=== PATIENT | male | born 1985 | race Caucasian/White ===

== ENCOUNTER 2017-07-18 15:05 | Inpatient (IN) | payer MEDICAID, OTHER ==
[~2017-07-18] VITALS: Ht 162.6 cm; Wt 68.0 kg
[2017-07-18 18:02] LABS: BASOPHILS % 0.4 % (0.0-2.0); EOSINOPHILS # 0.2 10^3/ul (0.0-0.5); EOSINOPHILS % 1.7 % (0.0-7.0); HEMATOCRIT 46.1 % (42.0-52.0); HEMOGLOBIN 16.4 g/dl (14.0-18.0); LYMPHOCYTES # 2.1 10^3/ul (0.8-2.9); LYMPHOCYTES % 23.7 % (15.0-51.0); MEAN CORPUSCULAR HEMOGLOBIN 28.9 pg (29.0-33.0); MEAN CORPUSCULAR HGB CONC 35.6 g/dl (32.0-37.0); MEAN CORPUSCULAR VOLUME 81.3 fl (82.0-101.0); MEAN PLATELET VOLUME 11.2 fl (7.4-10.4); MONOCYTE # 0.4 10^3/ul (0.3-0.9); MONOCYTES % 4.2 % (0.0-11.0); NEUTROPHILS % 69.8 % (39.0-77.0); PLATELET COUNT 273 10^3/UL (140-415); RED BLOOD COUNT 5.67 10^6/ul (4.70-6.10); RED CELL DISTRIBUTION WIDTH 11.9 % (11.5-14.5)
[2017-07-18 18:06] LABS: ADD UMIC NO; UR ASCORBIC ACID NEGATIVE (NEGATIVE); UR BILIRUBIN (Dip) NEGATIVE (NEGATIVE); UR BLOOD (Dip) NEGATIVE (NEGATIVE); UR CLARITY CLEAR (CLEAR); UR COLOR YELLOW (YELLOW); UR GLUCOSE (Dip) 3+ mg/dL (NEGATIVE); UR KETONES (Dip) 2+ mg/dL (NEGATIVE); UR LEUKOCYTE ESTERASE (Dip) NEGATIVE Leu/ul (NEGATIVE); UR NITRITE (Dip) NEGATIVE (NEGATIVE); UR SPECIFIC GRAVITY (Dip) 1.039 (1.003-1.030); UR TOTAL PROTEIN (Dip) NEGATIVE (NEGATIVE); UR UROBILINOGEN (Dip) NEGATIVE (NEGATIVE)
[2017-07-18 18:21] LABS: ALANINE AMINOTRANSFERASE 38 IU/L (13-69); ALBUMIN 4.7 g/dl (3.3-4.9); ALBUMIN/GLOBULIN RATIO 1.23; ALKALINE PHOSPHATASE 132 IU/L (42-121); ANION GAP 23 (8-16); ASPARTATE AMINO TRANSFERASE 20 IU/L (15-46); BILIRUBIN,INDIRECT 0.5 mg/dl (0-1.1); BILIRUBIN,TOTAL 0.5 mg/dl (0.2-1.3); BLOOD UREA NITROGEN 11 mg/dl (7-20); CALCIUM 9.7 mg/dl (8.4-10.2); CARBON DIOXIDE 22 mmol/L (21-31); CHLORIDE 96 mmol/L (97-110); CREATININE 0.94 mg/dl (0.61-1.24); POTASSIUM 4.5 mmol/L (3.5-5.1); SODIUM 136 mmol/L (135-144); TOTAL PROTEIN 8.5 g/dl (6.1-8.1)
--- NOTE | 2017-07-18 18:22 | ERD ---
ER Documentation Chief Complaint Date/Time DATE: 07/18/17 TIME: 18:20 Chief Complaint Complains pf chest wall pain x 3 days HPI This is a 31-year-old male presents to the ER with chest wall pain over the last few months. Patient states that chest wall pain is on the left side of the chest and radiates to the right. It is described as a sharp pain worse whenever he takes a deep breath. Patient has not had any cough or cold symptoms. He denies any fevers or chills. He denies any history of asthma. Patient denies any shortness of breath.Patient also complaining of a 60 pound weight loss over the last 9 months. Patient has not been on a diet and has not been working out. Patient denies any abdominal pain he denies any nausea vomiting or diarrhea. Patient does drink 1-2 beers a night and smokes 5-6 cigarettes a day. ROS 12 point review of systems was done, all negative except per HPI. Allergies Allergies: Coded Allergies: No Known Allergy (Unverified , 07/18/17) PMhx/Soc Medical and Surgical Hx: pt denies Medical Hx, pt denies Surgical Hx Hx Alcohol Use: Yes (2 beers/day) Hx Substance Use: No Hx Tobacco Use: Yes (5-6cig/day) Smoking Status: Current every day smoker Physical Exam Vitals Vital Signs Date Time Temp Pulse Resp B/P Pulse Ox O2 Delivery O2 Flow Rate FiO2 07/18/17 15:31 98.3 70 20 124/82 99 Physical Exam GENERAL: The patient is well developed and appropriate for usual state of health , in no apparent distress. HEENT: Atraumatic. Conjunctivae are pink. Pupils equal, round, and reactive to light. Extraocular muscles are grossly intact. Bilateral tympanic membranes are clear with no evidence of erythema, effusion or dulling of the light reflex. The oropharynx is clear with no erythema or exudates. NECK: C-spine is soft and supple. There is no cervical lymphadenopathy. CHEST: Clear to auscultation bilaterally. There are no rales, wheezes or rhonchi. HEART: Regular rate and rhythm. No murmurs, clicks, rubs or gallops. ABDOMEN: Soft, nontender and nondistended. Good bowel sounds. No rebound or guarding. No gross peritonitis. No gross organomegaly or masses. No Garcia sign or McBurney point tenderness. No pulsatile masses. BACK: No midline or flank tenderness. EXTREMITIES: Equal pulses bilaterally. There is no peripheral clubbing, cyanosis or edema. No focal swelling or erythema. Full range of motion. Grossly neurovascularly intact. NEURO: Alert and oriented. Cranial nerves II through XII are intact. Motor strength in all 4 extremities with 5/5 strength. Sensation grossly intact. Normal speech and gait. SKIN: There is no apparent rash or petechia. The skin is warm and dry. Result Diagram: 07/18/17 1746 07/18/17 1746 Results 24 hrs Laboratory Tests Test 07/18/17 17:37 07/18/17 17:46 Urine Color YELLOW Urine Clarity CLEAR Urine pH 5.0 Urine Specific [place] 1.039 Urine Ketones 2+mg/dL Urine Nitrite NEGATIVEmg/dL Urine Bilirubin NEGATIVEmg/dL Urine Urobilinogen NEGATIVEmg/dL Urine Leukocyte Esterase NEGATIVELeu/ul Urine Hemoglobin NEGATIVEmg/dL Urine Glucose 3+mg/dL Urine Total Protein NEGATIVEmg/dl White Blood Count 9.010^3/ul Red Blood Count 5.6710^6/ul Hemoglobin 16.4g/dl Hematocrit 46.1% Mean Corpuscular Volume 81.3fl Mean Corpuscular Hemoglobin 28.9pg Mean Corpuscular Hemoglobin Concent 35.6g/dl Red Cell Distribution Width 11.9% Platelet Count 50058^3/UL Mean Platelet Volume 11.2fl Neutrophils % 69.8% Lymphocytes % 23.7% Monocytes % 4.2% Eosinophils % 1.7% Basophils % 0.4% Nucleated Red Blood Cells % 0.0/100WBC Neutrophils # (Manual) 6.210^3/ul Lymphocytes # 2.110^3/ul Monocytes # 0.410^3/ul Eosinophils # 0.210^3/ul Basophils # 0.010^3/ul Nucleated Red Blood Cells # 0.010^3/ul Sodium Level 136mmol/L Potassium Level 4.5mmol/L Chloride Level 96mmol/L Carbon Dioxide Level 22mmol/L Anion Gap 23 Blood Urea Nitrogen 11mg/dl Creatinine 0.94mg/dl Glucose Level 574mg/dl Calcium Level 9.7mg/dl Total Bilirubin 0.5mg/dl Direct Bilirubin 0.00mg/dl Indirect Bilirubin 0.5mg/dl Aspartate Amino Transf (AST/SGOT) 20IU/L Alanine Aminotransferase (ALT/SGPT) 38IU/L Alkaline Phosphatase 132IU/L Troponin I Pending Total Protein 8.5g/dl Albumin 4.7g/dl Globulin 3.80g/dl Albumin/Globulin Ratio 1.23 Current Medications Medications (Trade) Dose Ordered Sig/Antonio Route PRN Reason Start Time Stop Time Status Last Admin Dose Admin Sodium Chloride (NS) 1,000 ml @ 1,000 mls/hr Q1H ONCE IV 07/18/17 19:00 07/18/17 19:59 Procedures/MDM Differential diagnosis includes but is not limited to; STEMI, dissection, pneumothorax, PE, esophageal rupture, tamponade, pneumonia, pericarditis, GERD, musculoskeletal, endocarditis, anxiety.Patient was found to have new onset diabetes with a blood sugar of 574. Patient will be transferred to ER 1 for further management and care. Patient will be admitted as this is new onset diabetes. Departure Diagnosis: Primary Impression: Chest wall pain Additional Impression: Hyperglycemia Condition: Stable JONA BIRMINGHAM Jul 18, 2017 18:22
[2017-07-18 18:23] LABS: GLUCOSE 574 mg/dl (70-220)
[2017-07-18 18:39] LABS: TROPONIN-I < 0.012 ng/ml (0.00-0.12)
[2017-07-18] MEDS ORDERED: SOD CHLORIDE 0.9% 1,000 ML IV ONE ×3 (19:00→21:00)
--- NOTE | 2017-07-18 19:14 | RADRPT ---
PROCEDURE: Portable chest x-ray. CLINICAL INDICATION: 31 years of age, male. Chest wall pain. TECHNIQUE: Portable AP view of the chest. COMPARISON: None available. FINDINGS: Cardiomediastinal contours are normal. Lungs are clear. Negative for pleural effusion or pneumothorax. No acute bony abnormality. IMPRESSION: Negative for evidence of an acute chest process. RPTAT: HCTS Physician Shakeel Date Time Electronically viewed and signed by Debbie Savage Physician on 07/18/2017 19:14 /
[2017-07-18] MEDS ORDERED: ONDANSETRON 4 MG INJ IV PRN ×2 (21:00→22:00)
[2017-07-18] MEDS ORDERED: INSULIN ASPART [NOVOLOG] 3 ML PEN SC ONE ×3 (21:00→23:30)
[2017-07-18] MEDS ORDERED: ACETAMINOPHEN 325 MG TAB PO PRN ×2 (21:00→22:00)
--- NOTE | 2017-07-18 21:02 | EN ---
Date/Time of Note Date/Time of Note DATE: 07/18/17 TIME: 20:59 ER Progress Note Beena, the PA brought this patient to my attention. Son evaluated patient with her and the patient needs to be admitted for new onset diabetes as well as chest pain. Is unlikely to be ischemic chest pain although he does have possible ischemic EKG changes with T-wave inversions on his EKG. Blood sugars extremely elevated explain the patient's recent symptoms of some weight loss and tiredness.No DKA.Spoke with Dr. Merino will be admitting to Telemetry and patient the patient for his EKG changes and chest pain EKG interpretation: Normal sinus rhythm rate 66, normal axis, T-wave inversions in the inferolateral leads as well as V4 concerning for possible ischemia, normal intervals. JULIANNA CARRASQUILLO DO Jul 18, 2017 21:02
[2017-07-18 21:49] VITALS: Ht 162.6 cm; Wt 68.0 kg
[2017-07-18] MEDS ORDERED: NACL 0.9% 3 ML SYG IV SCH (22:00)
--- NOTE | 2017-07-18 22:12 | HP ---
Date/Time of Note Date/Time of Note DATE: 07/18/17 TIME: 21:45 Assessment/Plan VTE Prophylaxis VTE Prophylaxis Intervention: SCD's Assessment/Plan Chief Complaint/Hosp Course This is a 31-year-old male being admitted to the telemetry floor for: #1 chest pain: Rule out ACS. Trend troponin 3, first set negative. Will check a 2D echocardiogram. EKG was normal sinus rhythm approximately 65 bpm with inversions in lead V4. #2 new onset diabetes mellitus: Patient's initial blood pressure on presentation was greater than 500. No signs of DKA at this time. After receiving IV fluids his subsequent blood sugar improved to 450. Will continue to provide IV fluid hydration with 2 additional liters of normal saline. Will give 5 units of NovoLog. Will check blood sugars every 4 hours. Will check a hemoglobin A1c. Check urine microalbumin. Check a lactic acid level. Based on the results of his A1c will decide on initial diabetic medications and whether patient would need to be started on insulin. Diabetes education consult. Will check a lipid panel and a TSH. Monitor closely for any signs of dka. Repeat bmp at midnight. #3 dehydration: Secondary #2, will continue IV fluid hydration with normal saline boluses. We will keep the patient on maintenance fluid overnight. And keep the patient n.p.o. Repeat BMP in the morning. #4 DVT and GI prophylaxis: SCDs, acid nain Further treatment strategy will be implemented as per the clinical course Problems: HPI/ROS Admit Date/Time Admit Date/Time Hx of Present Illness chief complaint: cp for the past few months, weight loss This is a 31-year-old male coming to the emergency department with chest pain for past few months and weight loss. Patient states that on and off for the past few months he has been experiencing chest pains in the middle of his chest and at times radiating to his left arm. Patient also states that he has noticed increased thirst and increased urination. He does report they feel tired a lot even after sleeping 8 hours at night. He reports that since October he has lost approximately 60 pounds. He was 220 pounds in October. Denies any fevers. Allergies: NKDA Medications: None ROS Const: As per HPI Eyes : No pain discharge or redness or change in visual acuity ENT: No pain, sore throat, congestion, congestion, dysphagia or discharge Respiratory: No shortness of breath, cough, sputum, wheezing, or pleuritic pain Cardiovascular: As per HPI GI : no change in appetite, abdominal pain, nausea, vomiting, diarrhea, constipation, or change in the color his stool Genitourinary: No dysuria, hematuria, flank pain , discharge or CVA tenderness Musculoskeletal: No joint pain, back pain, neck pain, restricted range of motion in neck or joints Skin: No rash, bruising or hives Neuro: No headache, dizziness, syncope, seizure, focal weakness Endocrine: No polyuria, polydipsia, temperature intolerance Psych: No hallucination, depression, anxiety or suicidal ideation PMH/Family/Social Past Medical History Medical History: no pertinent history Past Surgical History Past Surgical Hx: no surgical history Family History Significant Family History: heart disease (Uncle) Social History Alcohol Use: other (1-2 beers nightly) Smoking Status: Current every day smoker (6 cigarettes a day 11 years) Exam/Review of Systems Vital Signs Vitals Vital Signs Date Time Temp Pulse Resp B/P Pulse Ox O2 Delivery O2 Flow Rate FiO2 07/18/17 15:31 98.3 70 20 124/82 99 Exam Exam General: patient is a well-developed male standing by the bedside in no acute distress HEENT: Atraumatic, normocephalic. The pupils are equal, round and reactive. Extraocular motor are intact, mucous membranes dry Neck: Supple with full range of motion. No rigidity or meningismus Chest: Nontender Lungs: Clear to auscultation bilaterally no crackles rales or wheezing Heart: Normal S1-S2, Regular rhythm and rate. No overt murmurs appreciated Abdomen: Soft , nontender, nondistended , bowel sounds are present. No guarding no rebound tenderness , No masses or organomegaly. No costovertebral temporal angle mass Extremities: Normal to inspection, no edema no cyanosis Neurologic: Normal mental status, speech normal, cranial nerves II through XII are intact, motor and sensory are intact, no focal weakness Additional Comments EKG interpretation: Normal sinus rhythm rate 66, normal axis, T-wave inversions in the inferolateral leads as well as V4 concerning for possible ischemia, normal intervals PROCEDURE: Portable chest x-ray. CLINICAL INDICATION: 31 years of age, male. Chest wall pain. TECHNIQUE: Portable AP view of the chest. COMPARISON: None available. FINDINGS: Cardiomediastinal contours are normal. Lungs are clear. Negative for pleural effusion or pneumothorax. No acute bony abnormality. IMPRESSION: Negative for evidence of an acute chest process. Labs Result Diagram: 07/18/17 1746 07/18/17 1746 Medications Medications Current Medications Sodium Chloride 1,000 ml @ 1,000 mls/hr Q1H ONCE IV Last administered on 21:21; Admin Dose 1,000 MLS/HR; Start 07/18/17 at 21:00; Stop 07/18/17 at 21: 59 Sodium Chloride (NS) 1,000 ml @ 1,000 mls/hr Q1H ONCE IV Last administered on 07/18/17 21:21; Admin Dose 1,000 MLS/HR; Start 07/18/17 at 21:00; Stop 07/18/17 at 21:59 NISHA AG Jul 18, 2017 21:56
[2017-07-18 22:50] VITALS: BP 104/57; PULSE 67; RESP 18
[2017-07-18 23:02] LABS: CREATINE KINASE 34 IU/L (23-200)
[2017-07-18 23:12] LABS: CK-MB < 0.22 ng/ml (0.0-2.4)
[2017-07-18 23:19] LABS: TROPONIN-I < 0.012 ng/ml (0.00-0.12)
[2017-07-18] MEDS: SOD CHLORIDE 0.9% 1,000 ML IV SCH (23:39)
[2017-07-19] VITALS (13 sets, daily range): BP systolic 91–190; BP diastolic 56–88; PULSE 50–59; RESP 16–20
[2017-07-19 01:28] LABS: CALCIUM 8.6 mg/dl (8.4-10.2); CREATININE 0.77 mg/dl (0.61-1.24); POTASSIUM 3.7 mmol/L (3.5-5.1)
[2017-07-19] MEDS ORDERED: POTASSIUM CHLORIDE (SR) 20 MEQ TAB PO ONE (01:59)
[2017-07-19 04:22] LABS: BASOPHILS % 0.6 % (0.0-2.0); EOSINOPHILS # 0.2 10^3/ul (0.0-0.5); EOSINOPHILS % 3.5 % (0.0-7.0); HEMATOCRIT 38.8 % (42.0-52.0); HEMOGLOBIN 13.3 g/dl (14.0-18.0); LYMPHOCYTES # 3.2 10^3/ul (0.8-2.9); LYMPHOCYTES % 47.2 % (15.0-51.0); MEAN CORPUSCULAR HEMOGLOBIN 28.4 pg (29.0-33.0); MEAN CORPUSCULAR HGB CONC 34.3 g/dl (32.0-37.0); MEAN CORPUSCULAR VOLUME 82.7 fl (82.0-101.0); MEAN PLATELET VOLUME 11.1 fl (7.4-10.4); MONOCYTE # 0.5 10^3/ul (0.3-0.9); MONOCYTES % 7.6 % (0.0-11.0); NEUTROPHILS % 40.8 % (39.0-77.0); PLATELET COUNT 209 10^3/UL (140-415); RED BLOOD COUNT 4.69 10^6/ul (4.70-6.10); RED CELL DISTRIBUTION WIDTH 12.3 % (11.5-14.5); WHITE BLOOD COUNT 6.9 10^3/ul (4.8-10.8)
[2017-07-19 04:28] LABS: CREATINE KINASE 43 IU/L (23-200)
[2017-07-19 04:31] LABS: ALBUMIN 3.5 g/dl (3.3-4.9); ALBUMIN/GLOBULIN RATIO 1.2; BILIRUBIN,INDIRECT 0.3 mg/dl (0-1.1); BILIRUBIN,TOTAL 0.3 mg/dl (0.2-1.3); CALCIUM 8.5 mg/dl (8.4-10.2); CHOL/HDL RATIO 6.6 RATIO; CREATININE 0.72 mg/dl (0.61-1.24); MAGNESIUM 1.9 mg/dl (1.7-2.5); POTASSIUM 3.7 mmol/L (3.5-5.1); TOTAL PROTEIN 6.4 g/dl (6.1-8.1)
[2017-07-19 04:44] LABS: CK-MB < 0.22 ng/ml (0.0-2.4); TROPONIN-I < 0.012 ng/ml (0.00-0.12)
[2017-07-19] MEDS: INSULIN ASPART [NOVOLOG] 3 ML PEN SC SCH ×3 (05:25→12:34)
[2017-07-19 05:32] LABS: THYROID STIMULATING HORMONE 3.46 MIU/L (0.465-4.680)
[2017-07-19] MEDS: FAMOTIDINE 20 MG TAB PO SCH ×2 (08:20→20:55)
[2017-07-19] MEDS: SOD CHLORIDE 0.9% 1,000 ML IV SCH ×2 (08:57→17:40)
[2017-07-19] MEDS ORDERED: DEXTROSE 50% 50 ML SYRINGE IV PRN ×2 (15:30)
[2017-07-19] MEDS ORDERED: GLUCAGON 1 MG INJ IM PRN (15:30)
[2017-07-19] MEDS ORDERED: GLUCOSE GEL 15 GRAM TUBE PO PRN ×2 (15:30)
[2017-07-19] MEDS ORDERED: GLUCOSE GEL 15 GRAM TUBE BUCCAL PRN (15:30)
--- NOTE | 2017-07-19 16:50 | PN ---
Date/Time of Note Date/Time of Note DATE: 07/19/17 TIME: 16:48 Assessment/Plan VTE Prophylaxis VTE Prophylaxis Intervention: ambulation Lines/Catheters IV [facility] Saline Lock Assessment/Plan Chief Complaint/Hosp Course 1. Chest pain. Serial troponins negative. Pending 2D echocardiogram results. Most probably musculoskeletal in origin. 2. Diabetes mellitus. Newly diagnosed. Most probably type II. On sliding scale insulin. Patient was started on biguanides and dipeptyl peptidase-4 inhibitors as per endocrinology. Hemoglobin A1c outside range of [facility] standards. Sample has been sent out. Diabetes education and dietary consult was obtained 3. Hypertriglyceridemia. Low-cholesterol, low concentrated sugar diet advised. Obtain dietary consult. 4. Fluids, electrolytes, and nutrition. Carbohydrate controlled diet. 5. Plan. Continue diabetes management as per endocrinology. Await 2D echocardiogram results. Case discussed with Dr. Camejo. Problems: Subjective 24 Hr Interval Summary Free Text/Dictation Denies any chest pain. Blood sugars running high, although better. Exam/Review of Systems Vital Signs Vitals Vital Signs Date Time Temp Pulse Resp B/P Pulse Ox O2 Delivery O2 Flow Rate FiO2 07/19/17 16:16 57 07/19/17 16:14 97.8 18 122/70 100 07/19/17 06:51 Room Air Exam General: Adequately build 31 year-old male lying in bed in no apparent distress. HEENT: Normocephalic, atraumatic. Eyes: Anicteric sclerae, conjunctivae clear. ENT: Nasal septum midline, oral mucosa moist. Neck supple, no JVD noticed. Respiratory: Bilaterally clear breath sounds. No use of accessory muscles of respiration. No adventitious breath sounds. Cardiovascular: S1, S2 heard. No murmurs or gallops. Abdomen: Soft, nontender, and nondistended. Bowel sounds positive in all 4 quadrants. Genitourinary: Deferred. Extremities: No cyanosis, no clubbing, no edema. Peripheral pulses palpable. Neurologic: Cranial nerves II through XII grossly intact. The patient is awake, alert, and oriented. Skin: Normal skin turgor. No skin rashes. Results Result Diagram: 07/19/17 0327 07/19/17 0327 Results 24 hrs Laboratory Tests Test 07/18/17 17:37 07/18/17 17:46 07/18/17 21:15 07/18/17 22:00 Urine Color YELLOW Urine Clarity CLEAR Urine pH 5.0 Urine Specific [place] 1.039 H Urine Ketones 2+ H Urine Nitrite NEGATIVE Urine Bilirubin NEGATIVE Urine Urobilinogen NEGATIVE Urine Leukocyte Esterase NEGATIVE Urine Hemoglobin NEGATIVE Urine Glucose 3+ H Urine Total Protein NEGATIVE White Blood Count 9.0 Red Blood Count 5.67 Hemoglobin 16.4 Hematocrit 46.1 Mean Corpuscular Volume 81.3 L Mean Corpuscular Hemoglobin 28.9 L Mean Corpuscular Hemoglobin Concent 35.6 Red Cell Distribution Width 11.9 Platelet Count 273 Mean Platelet Volume 11.2 H Neutrophils % 69.8 Lymphocytes % 23.7 Monocytes % 4.2 Eosinophils % 1.7 Basophils % 0.4 Nucleated Red Blood Cells % 0.0 Neutrophils # (Manual) 6.2 Lymphocytes # 2.1 Monocytes # 0.4 Eosinophils # 0.2 Basophils # 0.0 Nucleated Red Blood Cells # 0.0 Sodium Level 136 Potassium Level 4.5 Chloride Level 96 L Carbon Dioxide Level 22 Anion Gap 23 H Blood Urea Nitrogen 11 Creatinine 0.94 Glucose Level 574 *H Hemoglobin A1c Calcium Level 9.7 Total Bilirubin 0.5 Direct Bilirubin 0.00 Indirect Bilirubin 0.5 Aspartate Amino Transf (AST/SGOT) 20 Alanine Aminotransferase (ALT/SGPT) 38 Alkaline Phosphatase 132 H Troponin I < 0.012 < 0.012 Total Protein 8.5 H Albumin 4.7 Globulin 3.80 H Albumin/Globulin Ratio 1.23 Bedside Glucose 454 *H Lactic Acid Level 0.9 Creatine Kinase 34 Creatine Kinase Index 0.6 Creatinine Kinase MB (Mass) < 0.22 Test 07/18/17 23:13 07/19/17 00:40 07/19/17 01:47 07/19/17 03:27 Bedside Glucose 327 H 170 Sodium Level 138 142 Potassium Level 3.7 3.7 Chloride Level 107 # 108 Carbon Dioxide Level 26 25 Anion Gap 9 # 13 Blood Urea Nitrogen 11 11 Creatinine 0.77 0.72 Glucose Level 215 # 160 Calcium Level 8.6 8.5 White Blood Count 6.9 # Red Blood Count 4.69 L Hemoglobin 13.3 L Hematocrit 38.8 L Mean Corpuscular Volume 82.7 Mean Corpuscular Hemoglobin 28.4 L Mean Corpuscular Hemoglobin Concent 34.3 Red Cell Distribution Width 12.3 Platelet Count 209 # Mean Platelet Volume 11.1 H Neutrophils % 40.8 Lymphocytes % 47.2 Monocytes % 7.6 Eosinophils % 3.5 Basophils % 0.6 Nucleated Red Blood Cells % 0.0 Neutrophils # (Manual) 2.8 Lymphocytes # 3.2 H Monocytes # 0.5 Eosinophils # 0.2 Basophils # 0.0 Nucleated Red Blood Cells # 0.0 Magnesium Level 1.9 Total Bilirubin 0.3 Direct Bilirubin 0.00 Indirect Bilirubin 0.3 Aspartate Amino Transf (AST/SGOT) 15 Alanine Aminotransferase (ALT/SGPT) 31 Alkaline Phosphatase 83 Creatine Kinase 43 Creatine Kinase Index 0.5 Creatinine Kinase MB (Mass) < 0.22 Troponin I < 0.012 Total Protein 6.4 # Albumin 3.5 # Globulin 2.90 Albumin/Globulin Ratio 1.20 Triglycerides Level 454 H Cholesterol Level 160 LDL Cholesterol, Calculated 45 HDL Cholesterol 24 L Cholesterol/HDL Ratio 6.6 Thyroid Stimulating Hormone (TSH) 3.460 Test 07/19/17 05:17 07/19/17 07:58 07/19/17 08:51 07/19/17 11:11 Bedside Glucose 173 258 H 253 H Hemoglobin A1c Test 07/19/17 12:28 Bedside Glucose 236 H Medications Medications Current Medications Sodium Chloride (NS) 1,000 ml @ 100 mls/hr Q10H IV Last administered on 08:57; Admin Dose 100 MLS/HR; Start 07/18/17 at 21:40 Ondansetron HCl (Zofran Inj) 4 mg Q6H PRN IV NAUSEA AND/OR VOMITING; Start 07/18 at 22:00 Acetaminophen (Tylenol Tab) 650 mg Q6H PRN PO PAIN LEVEL 1-3 OR FEVER; Start at 22:00 Famotidine (Pepcid) 20 mg Q12 PO Last administered on 07/19/17 08:20; Admin Dose 20 MG; Start 07/19/17 at 09:00 Linagliptin (Tradjenta) 5 mg DAILY PO ; Start 07/20/17 at 09:00 Miscellaneous Information 1 ea NOTE XX ; Start 07/19/17 at 15:30 Glucose (Glutose) 15 gm Q15M PRN PO DECREASED GLUCOSE; Start 07/19/17 at 15:30 Glucose (Glutose) 22.5 gm Q15M PRN PO DECREASED GLUCOSE; Start 07/19/17 at 15:30 Dextrose (D50w Syringe) 25 ml Q15M PRN IV DECREASED GLUCOSE; Start 07/19/17 at 15:30 Dextrose (D50w Syringe) 50 ml Q15M PRN IV DECREASED GLUCOSE; Start 07/19/17 at 15:30 Glucagon (Glucagen) 1 mg Q15M PRN IM DECREASED GLUCOSE; Start 07/19/17 at 15:30 Glucose (Glutose) 15 gm Q15M PRN BUCCAL DECREASED GLUCOSE; Start 07/19/17 at 15: 30 SONAL FOUNTAIN NP Jul 19, 2017 16:50
[2017-07-19] MEDS: Insulin NOVOLOG SS MILD Algorithm (SS with meals and bedtime) SC SCH ×2 (17:07→20:57)
[2017-07-19] MEDS ORDERED: INSULIN ASPART [NOVOLOG] 3 ML PEN SC SCH (17:35)
[2017-07-19] MEDS: metFORMIN 500 MG TAB PO SCH (17:57)
[2017-07-20] VITALS (16 sets, daily range): BP systolic 102–118; BP diastolic 52–72; PULSE 40–66; RESP 14–20
--- NOTE | 2017-07-20 00:38 | CONS ---
Date/Time of Note Date/Time of Note DATE: 07/19/17 TIME: 14:30 Late entry Assessment/Plan Assessment/Plan Problems: (1) Diabetes mellitus, new onset Status: Acute Comment: Based on patients history and physical characteristics suspect this patient to be Type 2 DM. I will none the less send out antibody profile and c peptide to rule out Type 1 DM. I will start patient on metformin and Tradjenta, continue sliding scale coverage and change accu-checks to AC and HS. If antibodies come back positive will obviously need to restructure patients regimen and convert all medications to basal bolus insulin at that time. (2) Hyperglycemia Status: Acute Comment: Suboptimal glycemic control but overall improved glucose readings with hydration and insulin. Additional Assessment/Plan Will continue to monitor next 24 hours. If patient to be sent home will need follow up to review antibody profile. Consultation Date/Type/Reason Admit Date/Time Date of Consultation: Jul 19, 2017 Type of Consultation: Endocrine Reason for Consultation New onset Diabetes Referring Provider: NISHA AG of Present Illness 31 year old man with an 8 month history of intermittent chest discomfort. Ignoring need to work up cause of chest pain until this hospitalization. States that the pain was becoming more intense with left arm radiation. States that he weighed 220 lbs back in October and has since then lost significant amount of weight without trying. Also describes intense thirst and frequent urination awaking several times at night to urinate. Constitutional: other (As per ROS free text) Eyes: No discharge, No no complaints, No other, No pain, No redness, No visual change ENT: No bleeding, No congestion, No discharge, No dysphagia, No no complaints, No other, No pain, No sore throat Respiratory: No cough, No no complaints, No other, No pain, No pleuritic pain, No shortness of breath, No sputum, No wheezing Cardiovascular: other (as per HPI) Gastrointestinal: No blood, No constipation, No decreased appetite, No diarrhea , No flatus, No nausea, No no complaints, No other, No pain, No passing stool, No vomiting Genitourinary: other (polyruia with nocturia) Musculoskeletal: No back pain, No bone/joint pain, No neck pain, No no complaints, No other, No restricted range of motion, No swelling Skin: No bruising, No erythema, No laceration, No no complaints, No other, No pruritis, No rash, No skin lesions Neurologic: No confusion, No dizziness, No focal-weakness, No headache, No no complaints, No other, No seizure, No syncope Endocrine: polydypsia, polyuria Lymphatic: No adenopathy, No lymphadema, No no complaints, No other, No tender nodes Psychological: anxiety Immunologic: No immunodeficiency, No no complaints, No other, No pruritis, No rhinitis, No urticaria Past Medical History Medical History: no pertinent history Past Surgical History Past Surgical Hx: no surgical history Family History Significant Family History: heart disease, diabetes, vascular disease Social History Alcohol Use: occasionally (1-2 beers nightly) Smoking Status: Current every day smoker (6 cigarettes a day 11 years) Other Social History Engaged. Worked for [employer] Exam/Review of Systems Vital Signs Vitals Vital Signs Date Time Temp Pulse Resp B/P Pulse Ox O2 Delivery O2 Flow Rate FiO2 07/19/17 20:08 59 07/19/17 20:00 98.1 16 108/61 98 07/19/17 06:51 Room Air Intake and Output 07/19/17 07/19/17 07/20/17 15:00 23:00 07:00 Intake Total 2740 ml Balance 2740 ml Exam Constitutional: alert, oriented, well developed Psych: no complaints Head: normocephalic Eyes: EOMI, PERRL, fundi, disc (undilated exam, fundi not seen), nl conjunctiva ENMT: mucosa pink and moist Neck: non-tender, supple Respiratory: clear to auscultation, normal air movement Cardiovascular: nl pulses, regular rate and rhythm Gastrointestinal: soft Musculoskeletal: nl extremities to inspection Extremities: normal pulses Neurological: nl mental status, nl speech, nl strength Skin: nl turgor, other (tattoo) Results POC reviewed Result Diagram: 07/19/17 0327 07/19/17 0327 Results 24 hrs Laboratory Tests Test 07/19/17 00:40 07/19/17 01:47 07/19/17 03:27 07/19/17 05:17 Sodium Level 138 142 Potassium Level 3.7 3.7 Chloride Level 107 # 108 Carbon Dioxide Level 26 25 Anion Gap 9 # 13 Blood Urea Nitrogen 11 11 Creatinine 0.77 0.72 Glucose Level 215 # 160 Calcium Level 8.6 8.5 Bedside Glucose 170 173 White Blood Count 6.9 # Red Blood Count 4.69 L Hemoglobin 13.3 L Hematocrit 38.8 L Mean Corpuscular Volume 82.7 Mean Corpuscular Hemoglobin 28.4 L Mean Corpuscular Hemoglobin Concent 34.3 Red Cell Distribution Width 12.3 Platelet Count 209 # Mean Platelet Volume 11.1 H Neutrophils % 40.8 Lymphocytes % 47.2 Monocytes % 7.6 Eosinophils % 3.5 Basophils % 0.6 Nucleated Red Blood Cells % 0.0 Neutrophils # (Manual) 2.8 Lymphocytes # 3.2 H Monocytes # 0.5 Eosinophils # 0.2 Basophils # 0.0 Nucleated Red Blood Cells # 0.0 Magnesium Level 1.9 Total Bilirubin 0.3 Direct Bilirubin 0.00 Indirect Bilirubin 0.3 Aspartate Amino Transf (AST/SGOT) 15 Alanine Aminotransferase (ALT/SGPT) 31 Alkaline Phosphatase 83 Creatine Kinase 43 Creatine Kinase Index 0.5 Creatinine Kinase MB (Mass) < 0.22 Troponin I < 0.012 Total Protein 6.4 # Albumin 3.5 # Globulin 2.90 Albumin/Globulin Ratio 1.20 Triglycerides Level 454 H Cholesterol Level 160 LDL Cholesterol, Calculated 45 HDL Cholesterol 24 L Cholesterol/HDL Ratio 6.6 Thyroid Stimulating Hormone (TSH) 3.460 Test 07/19/17 07:58 07/19/17 08:51 07/19/17 11:11 07/19/17 12:28 Hemoglobin A1c Bedside Glucose 258 H 253 H 236 H Test 07/19/17 16:59 07/19/17 20:33 Bedside Glucose 255 H 240 H Medications Medications Current Medications Sodium Chloride (NS) 1,000 ml @ 100 mls/hr Q10H IV Last administered on 08:57; Admin Dose 100 MLS/HR; Start 07/18/17 at 21:40 Ondansetron HCl (Zofran Inj) 4 mg Q6H PRN IV NAUSEA AND/OR VOMITING; Start 07/18 at 22:00 Acetaminophen (Tylenol Tab) 650 mg Q6H PRN PO PAIN LEVEL 1-3 OR FEVER; Start at 22:00 Famotidine (Pepcid) 20 mg Q12 PO Last administered on 07/19/17 20:55; Admin Dose 20 MG; Start 07/19/17 at 09:00 Linagliptin (Tradjenta) 5 mg DAILY PO ; Start 07/20/17 at 09:00 Miscellaneous Information 1 ea NOTE XX ; Start 07/19/17 at 15:30 Glucose (Glutose) 15 gm Q15M PRN PO DECREASED GLUCOSE; Start 07/19/17 at 15:30 Glucose (Glutose) 22.5 gm Q15M PRN PO DECREASED GLUCOSE; Start 07/19/17 at 15:30 Dextrose (D50w Syringe) 25 ml Q15M PRN IV DECREASED GLUCOSE; Start 07/19/17 at 15:30 Dextrose (D50w Syringe) 50 ml Q15M PRN IV DECREASED GLUCOSE; Start 07/19/17 at 15:30 Glucagon (Glucagen) 1 mg Q15M PRN IM DECREASED GLUCOSE; Start 07/19/17 at 15:30 Glucose (Glutose) 15 gm Q15M PRN BUCCAL DECREASED GLUCOSE; Start 07/19/17 at 15: 30 ANITA AGUILAR MD Jul 20, 2017 00:29
[2017-07-20] MEDS: SOD CHLORIDE 0.9% 1,000 ML IV SCH ×2 (06:05→17:23)
[2017-07-20 07:41] LABS: BASOPHILS % 0.7 % (0.0-2.0); EOSINOPHILS # 0.2 10^3/ul (0.0-0.5); EOSINOPHILS % 4.5 % (0.0-7.0); HEMATOCRIT 40.2 % (42.0-52.0); HEMOGLOBIN 13.1 g/dl (14.0-18.0); LYMPHOCYTES # 1.9 10^3/ul (0.8-2.9); LYMPHOCYTES % 42.3 % (15.0-51.0); MEAN CORPUSCULAR HEMOGLOBIN 27.6 pg (29.0-33.0); MEAN CORPUSCULAR HGB CONC 32.6 g/dl (32.0-37.0); MEAN CORPUSCULAR VOLUME 84.8 fl (82.0-101.0); MEAN PLATELET VOLUME 10.9 fl (7.4-10.4); MONOCYTE # 0.3 10^3/ul (0.3-0.9); NEUTROPHILS % 46.5 % (39.0-77.0); PLATELET COUNT 180 10^3/UL (140-415); RED BLOOD COUNT 4.74 10^6/ul (4.70-6.10); RED CELL DISTRIBUTION WIDTH 12.4 % (11.5-14.5); WHITE BLOOD COUNT 4.5 10^3/ul (4.8-10.8)
[2017-07-20 08:12] LABS: MAGNESIUM 1.7 mg/dl (1.7-2.5); PHOSPHORUS 3.7 mg/dl (2.5-4.9)
[2017-07-20 08:16] LABS: CALCIUM 8.8 mg/dl (8.4-10.2); CREATININE 0.72 mg/dl (0.61-1.24); POTASSIUM 4.3 mmol/L (3.5-5.1)
[2017-07-20] MEDS: Insulin NOVOLOG SS MILD Algorithm (SS with meals and bedtime) SC SCH ×4 (08:45→20:53)
[2017-07-20] MEDS: FAMOTIDINE 20 MG TAB PO SCH ×2 (08:48→20:51)
[2017-07-20] MEDS: LINAGLIPTIN 5 MG TABLET PO SCH (08:52)
--- NOTE | 2017-07-20 11:11 | RADRPT ---
Echocardiogram Report Patient Name: DANIELA WAY Gender: Male Date: 1985 Study Date: 19-Jul-2017 Speech Scientist: Jerad Benítez [facility] Location: [id number] Ref. Physician: NISHA AG Quality: Adequate Procedures: Transthoracic echocardiogram with complete 2D, M-Mode, and doppler examination. Indications: New onset dm, recurrent cp. 2D/M Mode Doppler Measurement Value Normal Ranges Measurement Value Normal Ranges LVIDd 2D 4.6 3.5 - 5.6 cm AV Peak Jan 1.1 m/sec LVIDs 2D 3.0 2.1 - 4.1 cm AV Peak PG 5.0 mmHg FS 2D 35.2 % LVOT Peak Jan 0.9 m/sec LVPWd 2D 1.1 0.6 - 1.1 cm LVOT Peak PG 3.0 mmHg IVSd 2D 1.1 0.6 - 1.1 cm MV E Peak Jan 0.9 m/sec IVS/LVPW 2D 0.9 MV A Peak Jan 0.5 m/sec AoR Diam 2D 2.9 2.0 - 3.7 cm MV E/A 1.9 LA/Ao 2D 1 0 - 1 MV Decel Time 169 msec EDV 2D 96.1 cm3 MV E/A 1.9 ESV 2D 26.2 cm3 LA Dimen 2D 3.9 2.3 - 4.0 cm Findings Left Ventricle: Normal left ventricular systolic function. Normal left ventricular cavity size. Normal left ventricular wall thickness. Ejection fraction is visually estimated at 65 %. Abnormal Diastolic Function. Right Ventricle: Normal right ventricular size. Normal right ventricular systolic function. Left Atrium: The left atrium is normal in size. Right Atrium: The right atrium is normal in size. Mitral Valve: Mitral valve leaflets appear mildly thickened. Mild mitral annular calcification. Trace mitral regurgitation. Aortic Valve: Normal appearance of the aortic valve. No significant aortic stenosis or insufficiency. Tricuspid Valve: Normal appearance of the tricuspid valve. Unable to obtain RVSP due to minimal presence of tricuspid regurgitation. There is trace tricuspid regurgitation. Pulmonic Valve: Pulmonic valve not well visualized. There is mild pulmonic regurgitation. Pericardium: Normal pericardium with no significant pericardial effusion. Aorta: Normal aortic root. IVC: Normal size and normal respiratory collapse consistent with normal right atrial pressure. Conclusions 1.Normal left ventricular systolic function. Normal left ventricular cavity size. Normal left ventricular wall thickness. Ejection fraction is visually estimated at 65 %. Abnormal Diastolic Function. 2.Normal right ventricular size. Normal right ventricular systolic function. Electronically Signed By: Darrin Gray 20-Jul-2017 11:10:52 -0700 Patient Name: DANIELA WAY Study Date: 19-Jul-2017 [id number]
--- NOTE | 2017-07-20 14:38 | PN ---
Date/Time of Note Date/Time of Note DATE: 07/20/17 TIME: 14:35 Assessment/Plan VTE Prophylaxis VTE Prophylaxis Intervention: ambulation Lines/Catheters IV [facility] Saline [facility] Assessment/Plan Chief Complaint/Hosp Course 1. Chest pain. Serial troponins negative. 2D echocardiogram showing preserved left ventricular ejection fraction. Most probably musculoskeletal in origin. 2. Diabetes mellitus. Newly diagnosed. Most probably type II. On sliding scale insulin. Patient was started on biguanides and dipeptyl peptidase-4 inhibitors as per endocrinology. Hemoglobin A1c outside range of [facility] standards. Sample has been sent out. Diabetes education and dietary consult was obtained 3. Hypertriglyceridemia. Low-cholesterol, low concentrated sugar diet advised. Obtain dietary consult. 4. Fluids, electrolytes, and nutrition. Carbohydrate controlled diet. 5. DVT prophylaxis. Ambulation. 6. Plan. Continue diabetes management as per endocrinology. Await dietary and diabetes education consult. Case discussed with Dr. Camejo. Problems: Subjective 24 Hr Interval Summary Free Text/Dictation Sugars not quite well controlled. Exam/Review of Systems Vital Signs Vitals Vital Signs Date Time Temp Pulse Resp B/P Pulse Ox O2 Delivery O2 Flow Rate FiO2 07/20/17 12:07 49 07/20/17 12:00 97.8 16 109/72 97 Room Air Intake and Output 07/19/17 07/19/17 07/20/17 15:00 23:00 07:00 Intake Total 2740 ml 1200 ml Balance 2740 ml 1200 ml Exam General: Adequately build 31 year-old male lying in bed in no apparent distress. HEENT: Normocephalic, atraumatic. Eyes: Anicteric sclerae, conjunctivae clear. ENT: Nasal septum midline, oral mucosa moist. Neck supple, no JVD noticed. Respiratory: Bilaterally clear breath sounds. No use of accessory muscles of respiration. No adventitious breath sounds. Cardiovascular: S1, S2 heard. No murmurs or gallops. Abdomen: Soft, nontender, and nondistended. Bowel sounds positive in all 4 quadrants. Genitourinary: Deferred. Extremities: No cyanosis, no clubbing, no edema. Peripheral pulses palpable. Neurologic: Cranial nerves II through XII grossly intact. The patient is awake, alert, and oriented. Skin: Normal skin turgor. No skin rashes. Results Result Diagram: 07/20/17 0707/20/17 0711 Results 24 hrs Laboratory Tests Test 07/19/17 16:59 07/19/17 20:33 07/20/17 07:11 07/20/17 08:35 Bedside Glucose 255 H 240 H 248 H White Blood Count 4.5 #L Red Blood Count 4.74 Hemoglobin 13.1 L Hematocrit 40.2 L Mean Corpuscular Volume 84.8 Mean Corpuscular Hemoglobin 27.6 L Mean Corpuscular Hemoglobin Concent 32.6 Red Cell Distribution Width 12.4 Platelet Count 180 Mean Platelet Volume 10.9 H Neutrophils % 46.5 Lymphocytes % 42.3 Monocytes % 6.0 Eosinophils % 4.5 Basophils % 0.7 Nucleated Red Blood Cells % 0.0 Neutrophils # (Manual) 2.1 Lymphocytes # 1.9 Monocytes # 0.3 Eosinophils # 0.2 Basophils # 0.0 Nucleated Red Blood Cells # 0.0 Sodium Level 140 Potassium Level 4.3 Chloride Level 106 Carbon Dioxide Level 25 Anion Gap 13 Blood Urea Nitrogen 8 Creatinine 0.72 Glucose Level 257 H Calcium Level 8.8 Phosphorus Level 3.7 Magnesium Level 1.7 Test 07/20/17 12:01 Bedside Glucose 216 Medications Medications Current Medications Sodium Chloride (NS) 1,000 ml @ 100 mls/hr Q10H IV Last administered on 06:05; Admin Dose 100 MLS/HR; Start 07/18/17 at 21:40 Ondansetron HCl (Zofran Inj) 4 mg Q6H PRN IV NAUSEA AND/OR VOMITING; Start 07/18 at 22:00 Acetaminophen (Tylenol Tab) 650 mg Q6H PRN PO PAIN LEVEL 1-3 OR FEVER Last administered on 07/20/17 09:42; Admin Dose 650 MG; Start 07/18/17 at 22:00 Famotidine (Pepcid) 20 mg Q12 PO Last administered on 07/20/17 08:48; Admin Dose 20 MG; Start 07/19/17 at 09:00 Linagliptin (Tradjenta) 5 mg DAILY PO Last administered on 07/20/17 08:52; Admin Dose 5 MG; Start 07/20/17 at 09:00 Miscellaneous Information 1 ea NOTE XX ; Start 07/19/17 at 15:30 Glucose (Glutose) 15 gm Q15M PRN PO DECREASED GLUCOSE; Start 07/19/17 at 15:30 Glucose (Glutose) 22.5 gm Q15M PRN PO DECREASED GLUCOSE; Start 07/19/17 at 15:30 Dextrose (D50w Syringe) 25 ml Q15M PRN IV DECREASED GLUCOSE; Start 07/19/17 at 15:30 Dextrose (D50w Syringe) 50 ml Q15M PRN IV DECREASED GLUCOSE; Start 07/19/17 at 15:30 Glucagon (Glucagen) 1 mg Q15M PRN IM DECREASED GLUCOSE; Start 07/19/17 at 15:30 Glucose (Glutose) 15 gm Q15M PRN BUCCAL DECREASED GLUCOSE; Start 07/19/17 at 15: 30 SONAL FOUNTAIN NP Jul 20, 2017 14:38
--- NOTE | 2017-07-20 16:32 | CONS ---
Date/Time of Note Date/Time of Note DATE: 07/20/17 TIME: 16:21 Assessment/Plan Assessment/Plan Chief Complaint/Hosp Course 31 year old man with an 8 month history of intermittent chest discomfort. Ignoring need to work up cause of chest pain until this hospitalization. States that the pain was becoming more intense with left arm radiation. Problems: (1) Hyperglycemia Status: Acute Comment: Blood glucose still suboptimal but metformin typically requires approximately 1 month to see full effect. (2) Diabetes mellitus, new onset Status: Acute Comment: Characteristic suggestive of Type 2 DM. Never the less antibody profile sent and pending. Additional Assessment/Plan Clinically stable for discharge from endocrine viewpoint. Patient's metformin should be tapered up to 1000 mg BID. He will continue Tradjenta 5 mg. Follow up with me in 1 month. Consultation Date/Type/Reason Admit Date/Time Jul 18, 2017 at 20:59 Initial Consult Date 07/19/17 Type of Consultation: Endocrine Referring Provider: NISHA AG 24 HR Interval Summary Free Text/Dictation Patient feels ok. Met with RD today. Waiting for DM educator consult. Exam/Review of Systems Vital Signs Vitals Vital Signs Date Time Temp Pulse Resp B/P Pulse Ox O2 Delivery O2 Flow Rate FiO2 07/20/17 16:09 58 07/20/17 12:00 97.8 16 109/72 97 Room Air Intake and Output 07/19/17 07/19/17 07/20/17 15:00 23:00 07:00 Intake Total 2740 ml 1200 ml Balance 2740 ml 1200 ml Exam [place] at bedside Constitutional: alert Psych: no complaints Neck: supple Respiratory: clear to auscultation Cardiovascular: regular rate and rhythm Gastrointestinal: soft Musculoskeletal: nl extremities to inspection Skin: other (tattoos) Results POC glucose reviewed Result Diagram: 07/20/17 0711 07/20/17 0711 Results 24 hrs Laboratory Tests Test 07/19/17 16:59 07/19/17 20:33 07/20/17 07:11 07/20/17 08:35 Bedside Glucose 255 H 240 H 248 H White Blood Count 4.5 #L Red Blood Count 4.74 Hemoglobin 13.1 L Hematocrit 40.2 L Mean Corpuscular Volume 84.8 Mean Corpuscular Hemoglobin 27.6 L Mean Corpuscular Hemoglobin Concent 32.6 Red Cell Distribution Width 12.4 Platelet Count 180 Mean Platelet Volume 10.9 H Neutrophils % 46.5 Lymphocytes % 42.3 Monocytes % 6.0 Eosinophils % 4.5 Basophils % 0.7 Nucleated Red Blood Cells % 0.0 Neutrophils # (Manual) 2.1 Lymphocytes # 1.9 Monocytes # 0.3 Eosinophils # 0.2 Basophils # 0.0 Nucleated Red Blood Cells # 0.0 Sodium Level 140 Potassium Level 4.3 Chloride Level 106 Carbon Dioxide Level 25 Anion Gap 13 Blood Urea Nitrogen 8 Creatinine 0.72 Glucose Level 257 H Calcium Level 8.8 Phosphorus Level 3.7 Magnesium Level 1.7 Test 07/20/17 12:01 Bedside Glucose 216 Medications Medications Current Medications Sodium Chloride (NS) 1,000 ml @ 100 mls/hr Q10H IV Last administered on 06:05; Admin Dose 100 MLS/HR; Start 07/18/17 at 21:40 Ondansetron HCl (Zofran Inj) 4 mg Q6H PRN IV NAUSEA AND/OR VOMITING; Start 07/18 at 22:00 Acetaminophen (Tylenol Tab) 650 mg Q6H PRN PO PAIN LEVEL 1-3 OR FEVER Last administered on 07/20/17 09:42; Admin Dose 650 MG; Start 07/18/17 at 22:00 Famotidine (Pepcid) 20 mg Q12 PO Last administered on 07/20/17 08:48; Admin Dose 20 MG; Start 07/19/17 at 09:00 Linagliptin (Tradjenta) 5 mg DAILY PO Last administered on 07/20/17 08:52; Admin Dose 5 MG; Start 07/20/17 at 09:00 Miscellaneous Information 1 ea NOTE XX ; Start 07/19/17 at 15:30 Glucose (Glutose) 15 gm Q15M PRN PO DECREASED GLUCOSE; Start 07/19/17 at 15:30 Glucose (Glutose) 22.5 gm Q15M PRN PO DECREASED GLUCOSE; Start 07/19/17 at 15:30 Dextrose (D50w Syringe) 25 ml Q15M PRN IV DECREASED GLUCOSE; Start 07/19/17 at 15:30 Dextrose (D50w Syringe) 50 ml Q15M PRN IV DECREASED GLUCOSE; Start 07/19/17 at 15:30 Glucagon (Glucagen) 1 mg Q15M PRN IM DECREASED GLUCOSE; Start 07/19/17 at 15:30 Glucose (Glutose) 15 gm Q15M PRN BUCCAL DECREASED GLUCOSE; Start 07/19/17 at 15: 30 ANITA AGUILAR MD Jul 20, 2017 16:31
[2017-07-20] MEDS: metFORMIN 500 MG TAB PO SCH (17:28)
[2017-07-21] VITALS (8 sets, daily range): BP systolic 105–109; BP diastolic 59–75; PULSE 43–62; RESP 17–20
[2017-07-21] MEDS: SOD CHLORIDE 0.9% 1,000 ML IV SCH ×2 (03:58→09:40)
[2017-07-21] MEDS: FAMOTIDINE 20 MG TAB PO SCH (08:52)
[2017-07-21] MEDS: LINAGLIPTIN 5 MG TABLET PO SCH (08:52)
[2017-07-21] MEDS: Insulin NOVOLOG SS MILD Algorithm (SS with meals and bedtime) SC SCH ×2 (08:55→12:37)
[2017-07-21] MEDS ORDERED: LINA5TAB PO (10:48)
[2017-07-21] MEDS ORDERED: METF500T PO (10:48)
--- NOTE | 2017-07-21 10:55 | DS ---
Date/Time of Note Date/Time of Note DATE: 07/21/17 TIME: 10:49 Discharge Summary Admission/Discharge Info Admit Date/Time Jul 18, 2017 at 20:59 Discharge Date/Time Discharge Diagnosis 1. New onset DM, stable, follow up with PCP 2. Atypical chest pain, muscular Patient Condition: Stable Hx of Present Illness This is a 31-year-old male coming to the emergency department with chest pain for past few months and weight loss. Patient states that on and off for the past few months he has been experiencing chest pains in the middle of his chest and at times radiating to his left arm. Patient also states that he has noticed increased thirst and increased urination. He does report they feel tired a lot even after sleeping 8 hours at night. He reports that since October he has lost approximately 60 pounds. He was 220 pounds in October. Denies any fevers. Hospital Course the intermittent upper chest pain radiates to right upper chest is considered musculoskeletal. He has negative troponin and unremarkable ECG. Follow up with PCP, cardiology outpatient if persistent. Patient is found of having new onset DM with BG 574 on admission. He is treated with metformin and tradjenta along with ISS, BG ranges from 167 to 248. We will continue him on orals and follow up with PCP outpatient for possible need of insulins. Home Meds Active Scripts Metformin Hcl (Glucophage) 500 Mg Tablet, 500 MG PO WITH DINNER for 30 Days, TAB Prov:SARA JACOBS MD 07/21/17 Linagliptin (TRADJENTA) 5 Mg Tablet, 5 MG PO DAILY for 30 Days, TAB Prov:SARA JACOBS MD 07/21/17 Follow-up Plan PCP in one week Primary Care Provider Care Physician No Primary Pending Labs Laboratory Tests Test 07/20/17 12:01 07/20/17 17:17 07/20/17 20:50 07/21/17 08:07 Bedside Glucose 216mg/dL (70-220) 176mg/dL (70-220) 215mg/dL (70-220) 248mg/dL (70-220) SARA JACOBS MD Jul 21, 2017 10:55
[2017-07-21 14:37] LABS: MICROALBUMIN 1.5 mg/dL
[2017-07-23 22:53] LABS: ISLET CELL ANTIBODY SCREEN NEGATIVE (NEGATIVE)
== END 2017-07-21 16:30 | disposition home or self-care (01) | DRG 639 ==
LOC: FTE 15:05 → MS3 20:59 → MS4 07-19 06:41
PROVIDERS: ADMIT Family Medicine; ATTEND Family Medicine
DX: E11.65 Type 2 diabetes mellitus with hyperglycemia (principal); E78.1 Pure hyperglyceridemia; R07.89 Other chest pain; F17.210 Nicotine dependence, cigarettes, uncomplicated; E86.0 Dehydration; R63.4 Abnormal weight loss; Z83.3 Family history of diabetes mellitus
CPT/HCPCS: 36415; 71010; 80048; 80053; 80061; 81003; 82043; 82550; 82553; 82962; 83036; 83605; 83735; 84100; 84443; 84484; 84681; 85025; 86337; 86341; 93005; 93306; 96372; J1815; J7030

== ENCOUNTER → 2017-08-08 | Outpatient (CLI) | payer MEDICAID ==
[~2017-08-08] MED LIST: LINA5TAB PO; METF500T PO
== END | disposition home or self-care (01) ==
LOC: DIB 08:40
PROVIDERS: ATTEND Emergency Medicine
DX: Z02.9 Encounter for administrative examinations, unspecified (principal)